=== PATIENT | female | born 1960 | race Caucasian/White ===

== ENCOUNTER 2023-01-22 05:16 | Observation (INO) ==
--- NOTE | 2022-10-26 15:53 | PAT Medication Instructions ---
Medication Instructions Date of Service October 26, 2022 Home Medications Medication Instructions Recorded amoxicillin 500 mg tablet 2,000 mg PO ONCE #4 tabs 09/09/22 levothyroxine 50 mcg tablet (Synthroid) 50 mcg PO QAM calcium carbonate,citrate-magnesium oxide 200 mg calcium-50 mg tablet 1 tab PO QAM echinacea 400 mg capsule 400 mg PO QAM estradiol 0.01% (0.1 mg/gram) vaginal cream 1 appful vaginal 2XWK omega 3-xcm-aqr-fish oil 1,200 mg (144 mg-216 mg) capsule (Fish Oil) 1 cap PO QAM turmeric 400 mg capsule 500 mg PO QAM zinc 50 mg tablet 50 mg PO 3XWK amoxicillin 500 mg tablet 2,000 mg PO ONCE Continue as directed amoxicillin 500 mg tablet 2,000 mg PO ONCE (if needed) ASK your prescriber and surgeon estradiol 0.01% (0.1 mg/gram) vaginal cream 1 appful vaginal 2XWK STOP taking 2 weeks before surgery echinacea 400 mg capsule 400 mg PO QAM omega 9-piq-dea-fish oil 1,200 mg (144 mg-216 mg) capsule (Fish Oil) 1 cap PO QAM turmeric 400 mg capsule 500 mg PO QAM DO NOT take the morning of surgery calcium carbonate,citrate-magnesium oxide 200 mg calcium-50 mg tablet 1 tab PO QAM zinc 50 mg tablet 50 mg PO 3XWK Take morning of surgery With a small sip of water, OTHERWISE NOTHING TO EAT OR DRINK AFTER MIDNIGHT: levothyroxine 50 mcg tablet (Synthroid) 50 mcg PO QAM Other Notes If you have any questions please call us at [phone] or [phone] or [phone] or [phone]
--- NOTE | 2022-10-27 13:12 | Anesthesiology Consultation ---
Date of Service October 27, 2022 Assessment & Plan (1) Encounter for pre-operative examination: - PAT testing to be faxed to PCP by patient request for continuity of care. - Outpatient joint pathway: Per surgeon and patient, plan for outpatient joint program. Upon review of chart- patient is an acceptable candidate for Same Day Joint Program from anesthesia perspective pending perioperative course. Pending patient is motivated, has good support and surgeon's office completes Same Day Joint Program preop requirements- patient may proceed with outpatient [facility]. Chart Review Chart Review: Acceptable Risk for Surgery and Patient NOT seen in Pre Admission Testing History Surgery Operation Date: 11/30/22 10:20 Proposed Procedures p Right Total Hip Arthroplasty Anterior - Poncho Ramos, Height/Weight Height: 5 ft 4 in Weight: 61 kg Allergies Allergy/AdvReac Type Severity Reaction Status Date / Time adhesive Allergy Mild CONTACT Verified 10/23/22 07:35 DERMATITIS WITH BANDAIDS latex Allergy Mild skin rash, Verified 10/27/22 13:08 blistering oxycodone AdvReac Intermediate severe Verified 10/23/22 07:35 nausea tramadol Allergy Unknown listed in Uncoded 10/28/22 15:10 S EMR Medications Home Medications Medication Instructions Recorded Confirmed Last Taken levothyroxine 50 mcg tablet 50 mcg PO QAM 05/01/20 10/23/22 08/08/21 04:30 (Synthroid) calcium 1 tab PO QAM 07/10/21 10/23/22 08/07/21 08:00 carbonate,citrate-magnesium oxide 200 mg calcium-50 mg tablet echinacea 400 mg capsule 400 mg PO QAM 07/10/21 10/23/22 07/25/21 08:00 estradiol 0.01% (0.1 mg/gram) 1 appful vaginal 2XWK 07/10/21 10/23/22 08/05/21 08:00 vaginal cream omega 0-qoj-hhq-fish oil 1,200 mg 1 cap PO QAM 07/10/21 10/23/22 07/25/21 08:00 (144 mg-216 mg) capsule (Fish Oil) turmeric 400 mg capsule 500 mg PO QAM 07/10/21 10/23/22 07/25/21 08:00 zinc 50 mg tablet 50 mg PO 3XWK 07/10/21 10/23/22 07/25/21 08:00 amoxicillin 500 mg tablet 2,000 mg PO ONCE #4 tabs 09/09/22 10/23/22 Unknown Past Medical History Medical History (Updated 10/27/22 @ 13:08 by Krystal Posadas PA-C) Chronic back pain History of COVID-2020>denies hospitalization>resolved Hypertension "Diet controlled" Hypothyroid Patient denies h/o stroke, seizures, heart attack, heart failure, DM, blood clots or blood transfusions. Exercise / Class Metabolic Activity II 4-5 Yardwork/Stairs/Walk up hill (denies chest discomfort or shortness of breath with 1 FOS) Past Family History Family History Father Diabetes Other Coronary heart disease No family history of adverse response to anesthesia Past Surgical History Surgical History (Updated 10/27/22 @ 13:09 by Krystal Posadas PA-C) H/O abdominal hysterectomy History of colonoscopy History of dilatation and curettage X 3 History of tooth extraction wisdom History of total hip arthroplasty left Past Anesthesia History No Hx of Anesthesia Complications and No Family Hx of Anesthesia Complications History of PONV No Hx of PONV and No Hx of Motion Sickness Social History Smoking Status: Never smoker Do You Dip or Chew Tobacco: No Hx Alcohol Use: Yes Alcohol type: hard liquor alcohol intake frequency: holidays/special occasions only substance use type: does not use Review of Systems Snoring, denies witnessed apneas. Patient denies chest pain, shortness of breath, dyspnea on exertion, reflux, fever, chills, cough, wheezing, or palpitations. Physical Exam Vital Signs Vitals BP 131/83 P 78 TEMP 97.8 SP02 100% on RA RESP 17 Physical Patient resting comfortably in chair in NAD, alert and oriented, responding appropriately throughout visit Full cervical extension range of motion without pain TMD 3.5 finger breadths Mallampati Score 2 Dentition: multiple caps and crowns; removable partial lower, denies chipped or loose teeth, implants Lungs: normal respiratory effort. Good air movement, clear throughout to auscultation, no adventitious breath sounds Cardiac: regular rate and rhythm, no murmurs noted Carotid arteries: negative bruit bilat Lab Results Anesthesia Preop Results Results Anesthesia Widget: WBC 7.50 K/ul (4.8-10.8) 10/27/22 Hgb 14.0 g/dl (12.0-16.0) 10/27/22 Hct 39.9 % (37.0-47.0) 10/27/22 Plt 318 K/uL (130-400) 10/27/22 Na 142 mmol/L (136-145) 10/27/22 K 3.5 mmol/L (3.5-5.1) 10/27/22 Cl 105 mmol/L (98-107) 10/27/22 CO2 31 mmol/L (21-32) 10/27/22 BUN 13 mg/dl (6-23) 10/27/22 Creat 0.91 mg/dl (0.6-1.2) 10/27/22 Glucose Level 82 mg/dl (70-99(Fasting)) 10/27/22 PT 11.0 Seconds (9.0-12.0) 10/27/22 PTT 26.4 Seconds (21.0-31.0) 10/27/22 INR 1.0 (0.9-1.1) 10/27/22 Blood Type O Positive 10/27/22 Antibody Screen NEGATIVE 10/27/22 Testing Electrocardiogram Date: 10/27/22 NSR, rate 65 bpm Chest X-Ray Date: 10/27/22 No acute process
--- NOTE | 2023-01-21 06:36 | History & Physical Report ---
Date of Service January 21, 2023 Assessment & Plan (1) Osteoarthritis of right hip: We will proceed with a right anterior total of arthroplasty. Postoperatively she will be in our outpatient joint protocol. She will be discharged home on aspirin for DVT prophylaxis and oral pain medications. She plans to use energy physical therapy upon discharge. History of Present Illness Chief Complaint: Osteoarthritis of the right hip. Primary Care Provider: Clayton Monroe DO Coello is a pleasant 62-year-old female who I did a left hip replacement on a year ago. She has done very well with that. Unfortunately, she is now dealing with right hip pain. X-rays and clinical examination have been diagnostic for advanced osteoarthritis of the right hip. After failing extensive conservative treatment, she would like to proceed with a right total hip arthroplasty. . Allergies Allergy/AdvReac Type Severity Reaction Status Date / Time adhesive Allergy Mild CONTACT Verified 01/19/23 13:49 DERMATITIS WITH BANDAIDS latex Allergy Mild skin rash, Verified 01/19/23 13:49 blistering oxycodone AdvReac Intermediate severe Verified 01/19/23 13:49 nausea tramadol Allergy Unknown listed in Uncoded 10/28/22 15:10 [facility] EMR Home Medications Medication Instructions Recorded Confirmed Type levothyroxine 50 mcg tablet 50 mcg PO QAM 05/01/20 01/19/23 History (Synthroid) calcium 1 tab PO QAM 07/10/21 01/19/23 History carbonate,citrate-magnesium oxide 200 mg calcium-50 mg tablet echinacea 400 mg capsule 400 mg PO QAM 07/10/21 01/19/23 History estradiol 0.01% (0.1 mg/gram) 1 appful vaginal 2XWK 07/10/21 01/19/23 History vaginal cream omega 6-ohi-fqe-fish oil 1,200 mg 1 cap PO QAM 07/10/21 01/19/23 History (144 mg-216 mg) capsule (Fish Oil) turmeric 400 mg capsule 500 mg PO QAM 07/10/21 01/19/23 History zinc 50 mg tablet 50 mg PO 3XWK PRN colds 07/10/21 01/19/23 History amoxicillin 500 mg tablet 2,000 mg (4 x 500 mg) PO ONCE #4 09/09/22 01/19/23 Rx tabs Past Med/Surg History Medical History History of COVID-19 2020>denies hospitalization>resolved Chronic back pain Hypertension "Diet controlled" Hypothyroid Surgical History History of tooth extraction wisdom History of total hip arthroplasty left History of dilatation and curettage X 3 History of colonoscopy H/O abdominal hysterectomy Family History Father Diabetes Other Coronary heart disease No family history of adverse response to anesthesia Social History Smoking Status: Never smoker Second Hand Exposure: No; Do You Dip or Chew Tobacco: No; Tobacco Cessation Education Requested by Patient: No Hx Alcohol Use: Yes Alcohol type: hard liquor Hx Substance Use: No Preferred Language: Thai Communication Ability: Effective 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 Physical Exam On physical examination of the right hip, she has decreased range of motion. She has pain with forced internal/external rotation. All of her pains in her groin.. Constitutional WD/WN, vitals as above Eyes PERRL, conjunctivae normal, anicteric sclerae ENMT external ear and nose normal, oropharynx normal Neck trachea midline, no thyromegaly Respiratory normal respiratory effort Cardiovascular RRR, no murmur, no edema Gastrointestinal (Abdomen) normal bowel sounds, soft, nontender, no hepatosplenomegaly Psychiatric A+Ox3, euthymic affect Results & Data Results & Data Laboratory Results . Diagnostic Findings X-rays of the right hip and pelvis show advanced osteoarthritis with joint space narrowing, osteophyte formation, and dgiy-go-sbbg articulation. PG Care Time/CCT Total # of Minutes Spent Total Time Spent with Patient: Total time spent is greater than 50% in coordination of care (as documented) at patient's floor/unit and/or counseling patient: Coding Level of Care Code None Diagnoses Osteoarthritis of right hip M16.11
[2023-01-22] MEDS ORDERED: FAMOTIDINE 20 MG TAB PO SCH (06:00)
[2023-01-22] MEDS ORDERED: dexAMETHasone 4 MG TAB PO SCH (06:00)
[2023-01-22] MEDS ORDERED: ACETAMINOPHEN 500 MG TAB PO SCH (06:00)
[2023-01-22] MEDS ORDERED: LR 500ML BOLUS, THEN 15ML/HR IV SCH (06:00)
[2023-01-22] MEDS ORDERED: TRANEXAMIC ACID 1,000 MG **IV Pre-op IV SCH (06:00)
[2023-01-22] MEDS ORDERED: GABAPENTIN 600 MG DOSE PO SCH (06:00)
[2023-01-22] MEDS ORDERED: LR 60ML/HR IV SCH (06:00)
[2023-01-22] MEDS ORDERED: TRANEXAMIC ACID 1,000 MG **IV Intra-op IV SCH (06:00)
[2023-01-22] MEDS ORDERED: ceFAZolin 2000MG 2,000 MG/15 ML SYR IV SCH (06:00)
[2023-01-22] MEDS ORDERED: ORTHO JOINT MIX INFIL SCH (06:00)
[2023-01-22] MEDS ORDERED: MEPIVACAINE HCL 1.5% 30 ML VIAL ONE (06:24)
[2023-01-22] MEDS ORDERED: ePHEDrine sulfate 50 MG/ML AMP IV PRN (06:32)
[2023-01-22] MEDS ORDERED: ATROPINE SULFATE 0.1 MG/ML 10ML SYR IV PRN (06:32)
[2023-01-22] MEDS ORDERED: ONDANSETRON INJ 2 MG/ML 2 ML VIAL IV PRN ×2 (06:32→15:44)
[2023-01-22] MEDS ORDERED: fentaNYL citrate PF 100 MCG/2 ML VIAL IV PRN (06:32)
--- NOTE | 2023-01-22 06:35 | History & Physical Bridge Note ---
Date of Service January 22, 2023 History & Physical Bridge Note I have examined the patient, reviewed the History & Physical and in the interval since the performance of the History & Physical I have noted the following changes of clinical significance: no changes noted
[2023-01-22] MEDS ORDERED: fentaNYL citrate PF 100 MCG/2 ML VIAL ONE (06:45)
[2023-01-22] MEDS ORDERED: ORTHO JOINT ANESTHETIC ONE (06:45)
[2023-01-22] MEDS ORDERED: MIDAZOLAM HCL 1 MG/ML 2ML VIAL ONE (06:45)
[2023-01-22] MEDS ORDERED: PROPOFOL IV EMULSION 10 MG/ML 20 ML VIAL IV ONE (06:57)
[2023-01-22] MEDS ORDERED: ONDANSETRON INJ 2 MG/ML 2 ML VIAL ONE (07:25)
[2023-01-22] MEDS ORDERED: PHENYLEPHRINE 100MCG/ML 10ML SYR IV ONE (08:03)
--- NOTE | 2023-01-22 08:05 | Operative Report ---
PG Post Operative Report Pre & Post Diagnosis Operation Date: 01/22/23 07:00 Pre-Op Diagnosis: DJD Hip Right Post-Op Diagnosis: DJD Hip Right I identified the patient and participated in the time-out.: Yes Procedure Operation Date: 01/22/23 07:00 Actual Procedures p Right Anterior Total Hip Arthroplasty(Right) - Poncho Ramos DO Surgeon Poncho Ramos DO [employer] Supervisor Poncho Ruvalcaba PA-C Estimated Blood Loss 150 Findings Consistent with Post-Op Diagnosis Specimens Right femoral head Description of Procedure Implants used I used a ZimmerBiomet total hip arthroplasty system with a size 6 standard offset Avenir Complete stem, a 54 mm G7 cup with a 25mm screw, an E1 polyethylene liner, a 40 mm ceramic head with a -3.5 neck. Oumou arrived at the hospital for the above procedure. She was seen in the preoperative holding area and the operative extremity was identified and signed. She was given a spinal anesthetic, a preoperative antibiotic, and TXA. She was then taken back to the operating room and laid on the table in the supine position. She was given basic sedation. The operative leg was secured to a Puristst leg positioner. The hip was then prepped and draped in sterile fashion. A timeout was done and the patient and the operative extremity was properly identified. An anterior approach was used. Dissection was taken down through the fascia and the tensor muscle belly was retracted laterally and the rectus was retracted medially. The circumflex vessels were identified and ligated. The capsule was then incised and tagged for later repair. The femoral neck was then cut and the femoral head was removed. The acetabulum was exposed. Time was spent doing a complete circumferential labral release. Sequential reaming of the acetabulum up to a size 53 reamer was done. Final reamings were done under fluoroscopy to ensure appropriate version. A Biomet 54 mm G7 cup was then impacted into place. A single 25 mm screw was placed. The E1 polyethylene liner was then snapped into place. Surrounding soft tissues were then injected with 100 cc of an orthopedic pain control cocktail. The proximal femur was then exposed. Sequential broaching up to a size 6 broach was done. Off that broach a size 40 head with a -3.5 neck was trialed. The hip was reduced and fluoroscopic images showed anatomic alignment of the implants in acceptable length. The broach was removed. The final size 6 Avenir Complete stem was then impacted into place. A ceramic 40 mm head with a -3.5 neck was then impacted onto the stem and the hip was reduced. Final fluoroscopic images showed anatomic alignment of the hip. The capsule was then closed with #1 Vicryl suture. A dilute betadyne lavage was then done for 3 minutes. The joint was then irrigated with normal saline solution. The fascia was closed with #1 PDS suture. Skin was closed with 2-0 Vicryl, dorothy, and a Silverlon dressing. She was then transferred to a hospital bed and taken to the post anesthesia care unit in stable condition. She tolerated the procedure well. Poncho Stinson PA-C, was present for the entire procedure. He was critical for patient positioning, prepping, draping, retraction exposure, wound closure and application of sterile dressing. I attest to the content of the Intraoperative Record and any orders documented therein. Any exceptions are noted below.
[2023-01-22] MEDS ORDERED: HYDROCODONE/ACETAMOPHEN 5/325MG TAB PO PRN ×2 (08:23→15:44)
--- NOTE | 2023-01-22 08:36 | Fluoroscopy Report ---
FL hip RT 1V CLINICAL HISTORY: RIGHT ANTERIOR HIPright hip arthroplasty COMPARISON STUDY: 06/24/2022 FLUOROSCOPY TIME: 18.2 seconds FLUOROSCOPY IMAGES: 1 EXPOSURE DOSE: 1.03 mGy FINDINGS: Right arthroplasty demonstrates satisfactory alignment. No acute fracture or unexpected opa que foreign body. Expected postoperative soft tissue swelling with deep tissue air. IMPRESSION: Right hip arthroplasty with expected postoperative changes. ACT 112: Negative or not required by law. Electronically signed by: Delano Hernandez M.D. 01/22/2023 8:34 AM
--- NOTE | 2023-01-22 11:04 | XRay Report ---
XR hip 1V RT w pelvis HISTORY: 62 years-old Female IN PACU - A/P PELVIS and LATERAL HIP right hip arthroplasty COMPARISON: 09/24/2021 TECHNIQUE: AP view of the pelvis with crosstable lateral view of the right hip FINDINGS: Unremarkable appearance of the bilateral hip arthroplasties. Expected postoperative soft tissue swell ing and deep tissue air surrounding the right hip with lateral skin dorothy. IMPRESSION: Right hip arthroplasty with expected postoperative changes. ACT 112: Negative or not required by law. The above report was generated using voice recognition software. It may contain grammatical, syntax o r spelling errors. Electronically signed by: Delano Hernandez M.D. 01/22/2023 11:02 AM
--- NOTE | 2023-01-22 12:29 | Anesthesiology Progress Note ---
Date of Service January 22, 2023 Anesthesia Post Procedure Vital Signs Vital Signs: Temp Pulse Pulse Resp BP Pulse Ox O2 Del Method 01/22/23 12:05 97.7 F 80 18 107/63 97 Room Air 01/22/23 11:05 97.5 F L 60 18 110/69 93 Room Air 01/22/23 10:35 97.9 F 60 18 129/71 93 Room Air 01/22/23 10:05 97.9 F 60 18 110/69 93 Room Air 01/22/23 09:55 97.3 F L 58 L 12 105/68 98 Room Air 01/22/23 09:45 60 12 98/62 L 99 Room Air 01/22/23 09:35 63 16 100/67 96 Room Air 01/22/23 09:25 58 L 11 L 105/69 98 Room Air 01/22/23 09:15 57 L 12 102/65 92 Room Air 01/22/23 09:05 62 12 105/69 92 Room Air 01/22/23 08:55 62 12 104/65 93 Room Air 01/22/23 08:45 62 13 101/61 97 Room Air 01/22/23 08:35 64 12 100/62 95 Room Air 01/22/23 08:26 96.8 F L 72 15 102/63 99 Oxymask 01/22/23 05:50 97.5 F L 84 18 153/85 H 99 Room Air O2 Flow Rate 01/22/23 12:05 01/22/23 11:05 01/22/23 10:35 01/22/23 10:05 01/22/23 09:55 01/22/23 09:45 01/22/23 09:35 01/22/23 09:25 01/22/23 09:15 01/22/23 09:05 01/22/23 08:55 01/22/23 08:45 01/22/23 08:35 01/22/23 08:26 5 01/22/23 05:50 Pain Intensity Right Hip: Pain Intensity: 2 Transfer of Care Handoff Completed per policy Notes Mental Status: alert / awake / arousable and participated in evaluation Patient Amnestic to Procedure: Yes Nausea / Vomiting: adequately controlled Pain: adequately controlled Airway Patency, RR, SpO2: stable & adequate BP & HR: stable & adequate Hydration State: stable & adequate Neuraxial Anesthesia: was administered and sensory block is resolving Anesthetic Complications: no major complications apparent and Pt Satisfied with anesthetic care
[2023-01-22] MEDS ORDERED: SODIUM CHLORIDE 0.9% 500 ML IV ONE ×2 (13:37→14:00)
[2023-01-22] MEDS ORDERED: MAGNESIUM HYDROXIDE SUSP 30 ML UDC PO PRN (15:44)
[2023-01-22] MEDS ORDERED: METOCLOPRAMIDE HCL INJ 5 MG/ML 2 ML VIAL IV PRN (15:44)
[2023-01-22] MEDS ORDERED: NALOXONE HCL 0.4 MG/1 ML VIAL/CARP IV PRN (15:44)
[2023-01-22] MEDS ORDERED: SODIUM CHLORIDE 0.9% 1,000 ML IV SCH (15:44)
[2023-01-22] MEDS ORDERED: bisacodyL 10 MG SUPP PR PRN (15:44)
[2023-01-22] MEDS: KETOROLAC 30 MG/ML VIAL IV SCH ×2 (17:52→22:13)
[2023-01-22] MEDS: DOCUSATE SODIUM 100 MG CAP PO SCH (20:47)
[2023-01-22] MEDS: ceFAZolin 1000MG 1,000 MG/7.5 ML SYR IV SCH (20:47)
[2023-01-22] MEDS: ASPIRIN 81 MG ECTAB PO SCH (20:48)
[2023-01-22] MEDS ORDERED: SENNA 8.6 MG TAB PO SCH (21:00)
[2023-01-23] MEDS: KETOROLAC 30 MG/ML VIAL IV SCH (05:21)
[2023-01-23] MEDS: ceFAZolin 1000MG 1,000 MG/7.5 ML SYR IV SCH (05:21)
[2023-01-23] MEDS ORDERED: LEVOTHYROXINE SODIUM 50 MCG TABLET PO SCH (06:30)
[2023-01-23] MEDS ORDERED: dexAMETHasone 4 MG TAB PO SCH (08:00)
[2023-01-23] MEDS ORDERED: MULTIVITAMIN TAB PO SCH (09:00)
[2023-01-23] MEDS: DOCUSATE SODIUM 100 MG CAP PO SCH (09:11)
[2023-01-23] MEDS: ASPIRIN 81 MG ECTAB PO SCH (09:11)
--- NOTE | 2023-01-23 09:44 | Orthopedic Progress Note ---
Date of Service January 23, 2023 Assessment & Plan (1) Status post right hip replacement: Overall she is doing fairly well. She is not having much pain in the right hip. She will be seen by physical therapy today for ambulation and range of motion exercises. She is on aspirin for DVT prophylaxis. She can be discharged home later today. She will follow-up orthopedics in 2 weeks. Logan Coello was seen and examined at bedside this morning. Overall she is feeling much better. She is happy she stayed the night. She has been up and ambulating to the bathroom. She is no complaints.. Review of Systems All systems reviewed & are unremarkable except as noted in HPI & below. Physical Exam On physical examination of the right hip, the dressing is clean and dry. Her leg is out full extension. She is active dorsiflexion plantarflexion of the right ankle.. Results & Data Results & Data Laboratory Results . Diagnostic Findings Postoperative x-rays of the right hip show the prosthesis to be in anatomic alignment without any evidence of fracture complication, or loosening.. PG Care Time/CCT Total # of Minutes Spent Total Time Spent with Patient: Total time spent is greater than 50% in coordination of care (as documented) at patient's floor/unit and/or counseling patient: Coding Level of Care Code 04030 Post Operative Follow-Up Diagnoses Status post right hip replacement Z96.641
--- NOTE | 2023-01-23 09:46 | Discharge Summary ---
Date of Service January 23, 2023 Admission HPI (Per Admitting) Oumou is a pleasant 62-year-old female who I did a left hip replacement on a year ago. She has done very well with that. Unfortunately, she is now dealing with right hip pain. X-rays and clinical examination have been diagnostic for advanced osteoarthritis of the right hip. After failing extensive conservative treatment, she would like to proceed with a right total hip arthroplasty. . Admission Exam (Per Admitting) On physical examination of the right hip, she has decreased range of motion. She has pain with forced internal/external rotation. All of her pains in her groin.. Principal Diagnosis Same as "Discharge Diagnosis" noted below under Discharge Instructions. Discharge Exam On physical examination of the right hip, the dressing is clean and dry. Her leg is out full extension. She is active dorsiflexion plantarflexion of the right ankle.. Discharge Data Procedures Performed Operation Date: 01/22/23 07:00 Actual Procedures p Right Anterior Total Hip Arthroplasty(Right) - Poncho Ramos DO Ordered Studies 01/22/23 07:00 FL hip RT 1V Routine Hospital Course (1) Status post right hip replacement: On January 22, 2023 Oumou arrived at [facility] and underwent a right anterior hip replacement without complication. She had a spinal anesthetic. She was initially part of her outpatient joint protocol. Postoperatively she was a little hypotensive initially with physical therapy. Later in the day she was feeling better. After discussions, she felt it was better just to stay the night. We decided to admit her and transferred to the general orthopedic floors. Her hospital course was uneventful. On postop day 1, her vital signs were stable and her pain was well controlled. She was able to participate well with physical therapy doing ambulation and range of motion exercises. She was then discharged home. She will follow-up orthopedics in 2 weeks. PG Care Time/CCT Total # of Minutes Spent Total Time Spent with Patient: Total time spent is greater than 50% in coordination of care (as documented) at patient's floor/unit and/or counseling patient: Discharge Plan Discharge Items Patient Disposition: Home - Home Health Services Reason For Visit: POST SURGICAL CARE Discharge Diagnosis: same as above Activity: Per Instructions section Non-emergency contact: Surgeon Call non-emergency contact if: your temperature is above 101.5, your wound has increased redness and your wound has increased drainage Follow-up/Referrals: [facility] [Outside] (as per surgeon's office ) Clayton Monroe, [Primary Care Provider] - Diet: Regular Addtl Attending Provider Instructions: Activity and Therapy Recommendations: * If you are using [facility] then therapy will be provided at your home until they feel you have accomplished all of your goals. * If you are using [facility] then Physical Therapy will be provided until they feel you are ready to start Outpatient Physical Therapy. * If you are not using home therapy then Outpatient Physical Therapy should start about 3-5 days from your day of surgery. Therapy will last about 6-10 weeks * You were shown a series of exercises in the hospital. Do these exercises three times each day including the exercises you were shown in physical therapy. * Get up and walk several times each day.~ For the first four weeks, try not to stand or walk for more than one hour at a time. If you do stand or walk for more than one hour, you will not hurt anything, but your leg will likely swell.~~ * As you feel comfortable, you may change from the walker or crutches to a cane and~then to independent walking. Medications: * Narcotic You will likely be sent home from the hospital with a prescription for the narcotic pain medication that worked best throughout your stay. * Aspirin Most patients will be required to take Aspirin 81mg twice a day for 6 weeks after surgery. This is obtained [id number] and a prescription is not necessary. * Cefadroxil -take the antibiotic twice a day for 10 days to help with infections. * Other medications may be prescribed for specific circumstances. If you have any questions, please call the office at . * Resume previous home medications unless otherwise instructed TEDs/Elastic Stockings: The white elastic stockings help limit swelling and prevent blood clots from forming in your legs. The more you wear them, the more they work. Wear them for six weeks. Dressing Care: Leave the Silverlon dressing in place for 7 days. After 7 days you may remove the dressing. If the incision is not draining then you may leave the dorothy open to air. If there is a little bit of drainage or if the dorothy are getting stuck on your clothing then cover the incision with a dry dressing. The dorothy will be removed at your 2 week follow-up appointment. Showering: You may shower with the Silverlon dressing in place. Do not let the shower spray hit the dressing directly. Pat the Silverlon dressing dry. If the dressing becomes wet underneath, then simply remove the dressing. Keep the incision dry until you are 7 days out from the day of surgery. After 7 days you may remove the Silverlon dressing and shower with the dorothy exposed. Let soapy water run over the dorothy and pat them dry. Do not scrub or soak the incision. Things To Watch For: * Drainage from the incision site that occurs more than one week after your surgery. * Increased redness at the incision site. * Fever above 102 degrees Fahrenheit. * Unusual chest pain or shortness of breath. * Call [facility] at with any of the above problems Follow-Up Visit: Follow-up with Dr. Ramos's PA (Poncho Stinson) 2-3 weeks after your day of surgery. He will remove your dorothy and answer any questions. If you have any additional questions or concerns, Dr Ramos is usually in the office at the same time and will be available An appointment was probably scheduled when you signed-up for surgery in the office. If you have any questions call Office Instructions: More detailed instructions as well as Frequently Asked Questions were provided in a folder by our office when you signed-up for surgery. Please review these instructions when you get home. If you have any further questions or concerns, please feel free to call the office at [phone] Pending Studies at Discharge: No Stand-Alone Forms: Anesthesia/Sedation, Adult, My [facility], Smoking Cessation Medications and DC Order Prescriptions: New celecoxib [Celebrex] 200 mg capsule 200 mg PO Q12H PRN (Reason: pain) Qty: 60 0RF cefadroxil 500 mg capsule 500 mg PO BID 10 Days Qty: 20 0RF hydrocodone-acetaminophen 5-325 mg tablet 1 tab PO Q6H PRN (Reason: pain) Qty: 20 0RF ondansetron HCl 4 mg tablet 4 mg PO TID PRN (Reason: nausea and vomiting) Qty: 20 0RF aspirin 81 mg Tablet,Delayed Release (Dr/Ec) 81 mg PO BID 42 Days Qty: 0 0RF Continued amoxicillin 500 mg tablet 2,000 mg PO ONCE Qty: 4 3RF Rx Instructions: 4 tabs 1 hour prior to procedure levothyroxine [Synthroid] 50 mcg tablet 50 mcg PO QAM estradiol 0.01 % (0.1 mg/gram) Cream 1 appful VAGINAL 2XWK omega 1-cym-hqv-fish oil [Fish Oil] 1,200 (144-216) mg Capsule 1 cap PO QAM echinacea 400 mg Capsule 400 mg PO QAM calcium carb and citrat-mag ox 200 mg calcium- 50 mg Tablet 1 tab PO QAM turmeric 400 mg Capsule 500 mg PO QAM zinc 50 mg Tablet 50 mg PO 3XWK PRN (Reason: colds) Krames/Other Patient Handouts: DVT Post Op Prevention Admission Data Admit Date/Time: 01/22/23 14:39 Attending Provider: Poncho Ramos Admit Provider: Poncho Ramos Primary Care Provider: Clayton Monroe
--- OUTSIDE RECORDS SUMMARY | 2023-01-25 22:51 | External Medical Summary | Summary of Care ---
Author Name Unknown Organization [facility] Address [address] [place] [address] Phone [phone] Care Team Providers Care Rn Clinical Resource Name Role Phone Clayton Monroe DO Primary Care Provider Encounter Details Date Type Department Care Team (Late st Contact Info) Description 01/04/[address] [facility] ([place], [place]) [address] [place] [id number] Clayton Monroe DO [address] [place] [address] Allergies Active Allergy Reactions Criticality Noted Date Comments Alcohol Rash 04/10/2019 Latex 02/13/2020 Tramadol 02/13/2020 documented as of this encounter (statuses as of 01/04/2023) Medications Medication Sig Dispensed Refills Start Date End Date Status Calcium 500-125 MG-UNIT Tablet Take 1 Tab by mouth three times a day with meals. 0 Active Turmeric 500 MG Capsule Take 500 mg by mouth daily. 0 Active Echinacea 125 MG Oral Capsule Take by mouth. 0 Active Fish Oil 1000 MG Oral Capsule Take 1,000 mg by mouth daily. 0 Active Fluticasone Propionate 50 MCG/ACT Nasal Suspension (Flonase)Indications: Dysfunction of left eustachian tube Administer 2 Sprays into each nostril daily. 16 g 2 11/14/2020 Active Additional Information Patient not taking.Reported on 02/16/2022 Levothyroxine Sodium 50 MCG Oral Tablet (Synthroid)Indication s:Acquired hypothyroidism TAKE 1 TABLET DAILY FIRST THING IN THE MORNING AT LEAST 30 MINUTES PRIOR TO BREAKFAST OR OTHER MEDS Strength: 50 mcg 90 Tablet 3 04/07/2022 Active documented as of this encounter (statuses as of 01/04/2023) Active Problems Problem Noted Date Diagnosed Date HTN, goal below 130/80 02/13/2020 Acquired hypothyroidism 02/13/2020 Encounter for long-term (current) use of medicat ions 02/13/2020 Neoplasm of uncertain behavior of skin 0 documented as of this encounter (statuses as of 01/04/2023) Immunizations Name Administration Dates Next Due Covid-19 Ad26, Single Dose (Mague/J&J) 021 Measles & Rubella Vaccine 05/22/2019 SEASONAL INFLUENZA, PF, 6 M & Above, IM , (FLULAVAL or FLUZONE) 01/02/2023,12/18/2021,12/28/2020 TDAP (age 10 and older)(Boostrix) 11/23/2018 Zoster Vaccine Recombinant (Shingrix) 11/30/2019 ,09/25/2019 documented as of this encounter Social History Tobacco Use Types Packs/Day Years Used Date Smoking Tobacco: Never Smokeless Tobacco: Never Alcohol Use Standard Drinks/Week Comments Never 0 (1 standard drink = 0.6 oz pur e alcohol) Hunger Vital Sign Answer Date Recorded Within the past 12 months, y ou worried that your food would run out before you got the money to buy more. Never true 02/16/20 22 Within the past 12 months, t he food you bought just didn't last and you didn't have money to get more. Never true 02/15/2022 Sex and Gender Information Value Date Recorded Sex Assigned at Female 02/15/2022 9:38 PM EST Gender Identity Female 02/15/2022 9:38 PM EST Sexual Orientation Not on file Job Start Date Occupation Industry Not on file Not on file Not on file documented as of this encounter Plan of Treatment Upcoming Encounters Date Type Department Care Team (Late st Contact Info) Description 01/14/2023 8:20 AM EDT Office Visit Family [facility] [address] [id number] Clayton Monroe, [address] [place] [phone] Scheduled Procedures Name Priority Associated Diagnoses Date/Ti me COLONOSCOPY FLEXIBLE PROXIMAL DIAGNOSTIC Recall Screen for colon cancer Health Maintenance Due Date Last Done Comments Pap Smear 1980 Cervical Cancer Screening 1989 HPV/Co-Test 1989 Cologuard 2004 Fecal Occult Blood Test 2004 Sigmoidoscopy 2004 Depression Screening 02/13/2022 02/13/2021 COVID-19 Vaccine ( season) 2022 08/29/2020 GFR 08/14/2023 01/01/2023, 03/2022, 01/20/2022, Additional history exists TSH 08/14/2023 08/13/2022, 10/2021, 06/11/2021, Additional history exists Mammogram 10/03/2023 10/02/2022, 09/13, 08/06/2021 (Done elsewhere), Additional history exists Albumin/Creatinine Ratio 01/20/2025 022, 10/24/2020, 02/13/2020 Lipid Panel 01/20/2027 01/20/2022, 05/15, 10/24/2020, Additional history exists DTaP,Tdap,and Td Vaccines (2 - Td or Tdap) 11/23/2028 11/23/2018 Colonoscopy 04/17/2029 04/17/2019, 04/17/2019 Colorectal Cancer Screening 04/17/2029 Zoster Vaccines Completed 11/30/2019, 09/25/2019 Influenza Vaccine (FLU shot) Completed , 12/18/2021, 12/28/2020, Additional history exists GARDASIL-HPV IMMUNIZATION SERIES Aged Out No longer eligible based on patient's age to complete this topic Hepatitis B Aged Out No longer eligi ble based on patient's age to complete this topic MENINGOCOCCAL (MENACTRA/MENVEO) Aged Out No longer eligible based on patient's age to complete this topic Pneumococcal Vaccine: Pediatrics (0 to 5 Years) and At-Risk Patients (6 to 64 Years) Aged Out No longer eligible based on patient's age to complete this topic documented as of this encounter Medical Devices Not on filedocumented as of this encounter Procedures Procedure Name Priority Date/Time Associated Diagnosis Comments CHEMISTRY-OUTSIDE Routine 01/01/2023 documented in this encounter Results * CHEMISTRY-OUTSIDE (01/01/2023) Not all results display below - see scan for full detail OUTSIDE LAB (SEE SCANNED REPORT) Comment:SCAN INCL:PRE OP LAB S: BMP, CBCD,PT, INR, PTT, TYPE/SCR CREATININE-OUTSID E LAB 0.93 0.6 - 1.2 MG/DL OUTSIDE LAB (SEE SCANNED REPORT) EGFR-OUTSIDE LAB 65.4 OUT SIDE LAB (SEE SCANNED REPORT) POTASSIUM-OUTSIDE LAB 3.8 3.5 - 5.1 MMOL/L OUTSIDE LAB (SEE SCANNED REPORT) GLUCOSE-OUTSIDE LAB 72 70 - 99 MG/DL OUTSIDE LAB (SEE SCANNED REPORT) HOURS FASTING OUTSID E LAB (SEE SCANNED REPORT) TRIGLYCERIDES-OUT SIDE LAB OUTSIDE LAB (SEE SCANNED REPORT) CHOLESTEROL-OUTSI DE LAB OUTSIDE LAB (SEE SCANNED REPORT) HDL-OUTSIDE LAB OUTS [facility] (SEE SCANNED REPORT) CHOL/HDL RATIO-OUTSIDE LAB OUTSIDE LA B (SEE SCANNED REPORT) LDL (CALCULATED)-OUTS [facility] OUTSIDE LAB (SEE SCANNED REPORT) LDL (DIRECT MEASURE)-OUTSIDE LAB OUTSIDE LAB (SEE SCANNED REPORT) HEMOGLOBIN, [id number] LAB OUTSIDE LAB (SEE SCANNED REPORT) PHOSPHORUS-OUTSID E LAB OUTSIDE LAB (SEE SCANNED REPORT) PTH-OUTSIDE LAB OUTS [facility] (SEE SCANNED REPORT) MICROALBUMIN RATIO-OUTSIDE LAB OUTSIDE LA B (SEE SCANNED REPORT) PROTEIN, UA-OUTSIDE LAB OUTSIDE LAB (SEE SCANNED REPORT) HEMOGLOBIN-OUTSID E LAB 12.9 12.0 - 16.0 G/DL OUTSIDE LAB (SEE SCANNED REPORT) 01/01/2023 Poncho Ramos DO LABORATORY OUTSIDE LAB (SEE SCANNED REPORT) documented in this encounter Care Teams Rn Clinical Resource Relationship Specialty Start Date End Date Clayton Monroe DO [address] [address] PCP - General Family Medicine 02/13/20 documented as of this encounter
--- OUTSIDE RECORDS SUMMARY | 2023-01-25 22:51 | External Medical Summary | Summary of Care ---
Author Name Unknown Organization [facility] Address [address] [place] [address] Phone [phone] Care Team Providers Care Account [employer] Name Role Phone Clayton Monroe DO Primary Care Provider Reason for Visit * Reason Comments Physical-Exam Pt here for annual e xam and discuss recent labs. Encounter Details Date Type Department Care Team (Late st Contact Info) Description 01/14/2023 8:20 AM EDT Office Visit Family Practice [facility] [address] [place] [address] Clayton Monroe DO [address] [place] [address] HTN, goal below 130/80*; Acquired hypothyroidism; Encounter for long-term (current) use of medications; Vaginal atrophy; Onychomycosis Allergies Active Allergy Reactions Criticality Noted Date Comments Alcohol Rash 04/10/2019 Latex 02/13/2020 Oxycodone Nausea/vomiting 11/04/2021 Constipation Tramadol 02/13/2020 documented as of this encounter (statuses as of 01/14/2023) Medications Medication Sig Dispensed Refills Start Date End Date Status Calcium 500-125 MG-UNIT Tablet Take 1 Tab by mouth three times a day with meals. 0 Active Turmeric 500 MG Capsule Take 1 Capsule by mouth in the morning. 0 Active Echinacea 125 MG Oral Capsule Take by mouth. 0 Active Fish Oil 1000 MG Oral Capsule Take 1 Capsule by mouth in the morning. 0 Active Fluticasone Propionate 50 MCG/ACT Nasal Suspension (Flonase)Indication s:Dysfunction of left eustachian tube Administer 2 Sprays into each nostril daily. 16 g 2 11/14/2020 Active Additional Information Patient not taking.Reported on 02/16/2022 Estradiol 0.1 MG/GM Vaginal Cream (Estrace)Indication s:Vaginal atrophy Administer 1 g into the vagina every other day. 42.5 g 12 01/14/2023 Active Levothyroxine Sodium 50 MCG Oral Tablet (Synthroid)Indicati ons:Acquired hypothyroidism TAKE 1 TABLET DAILY FIRST THING IN THE MORNING AT LEAST 30 MINUTES PRIOR TO BREAKFAST OR OTHER MEDS Strength: 50 mcg 90 Tablet 3 01/14/2023 Active Ciclopirox 8 % External SolutionIndications :Onychomycosis Apply over nail and surrounding skin. Apply daily over previous coat. After seven (7) days, may remove with alcohol and continue cycle. 6.6 mL 0 01/14/2023 Active Levothyroxine Sodium 50 MCG Oral Tablet (Synthroid)Indicati ons:Acquired hypothyroidism TAKE 1 TABLET DAILY FIRST THING IN THE MORNING AT LEAST 30 MINUTES PRIOR TO BREAKFAST OR OTHER MEDS Strength: 50 mcg 90 Tablet 3 04/07/2022 3 Discontinue d(Refill) documented as of this encounter (statuses as of 01/14/2023) Active Problems Problem Noted Date Diagnosed Date HTN, goal below 130/80 02/13/2020 Acquired hypothyroidism 02/13/2020 Encounter for long-term (current) use of medicat ions 02/13/2020 Neoplasm of uncertain behavior of skin 0 documented as of this encounter (statuses as of 01/14/2023) Immunizations Name Administration Dates Next Due Covid-19 Ad26, Single Dose (Mague/J&J) 021 Measles & Rubella Vaccine 05/22/2019 SEASONAL INFLUENZA, PF, 6 M & Above, IM , (FLULAVAL or FLUZONE) 01/02/2023,12/18/2021,12/28/2020 TDAP (age 10 and older)(Boostrix) 11/23/2018 Zoster Vaccine Recombinant (Shingrix) 11/30/2019 ,09/25/2019 documented as of this encounter Social History Tobacco Use Types Packs/Day Years Used Date Smoking Tobacco: Never Smokeless Tobacco: Never Tobacco Cessation:Counseling Given: Not Answered Alcohol Use Standard Drinks/Week Comments Never 0 (1 standard drink = 0.6 oz pur e alcohol) AUDIT-C Answer Date Recorded Q1: How often do you have a drink containing alc ohol? Never 02/13/2020 Average Number of Drinks Not on file 020 Frequency of Binge Drinking Not on file 03/2019 PHQ-2 Answer Date Recorded PHQ Adult Total Score 0 02/13/2021 Hunger Vital Sign Answer Date Recorded Within [...] on file documented as of this encounter Last Filed Vital Signs Vital Sign Reading Time Taken Comments Blood Pressure 132/88 01/14/2023 8:14 AM EDT Pulse 74 01/14/2023 8:14 AM EDT Temperature 36.2 C (97.2 F) 01/14/2023 8:14 AM ED T Respiratory Rate 16 01/14/2023 8:14 AM EDT Oxygen Saturation 99% 01/14/2023 8:14 AM EDT Inhaled Oxygen Concentration - - Weight 61.5 kg (135 lb 8 oz) 01/14/2023 8:14 AM EDT Height - - Body Mass Index 23.26 02/16/2022 12:14 PM EST documented in this encounter Progress Notes * Clayton Monroe DO - 01/14/2023 8:18 AM EDT Images from the original note were not included. Assessment and Plan HTN, goal below 130/80 - BASIC METABOLIC PANEL - CBC WITH WBC DIFFERENTIAL Acquired hypothyroidism - TSH WITH FREE T4 IF INDICATED - Levothyroxine Sodium 50 MCG Oral Tablet (Synthroid); TAKE 1 TABLET DAILY FIRST THING IN THE MORNING AT LEAST 30 MINUTES PRIOR TO BREAKFAST OR OTHER MEDS Strength: 50 mcg Encounter for long-term (current) use of medications - LIPID PANEL WITH DIRECT LDL IF TG IS HIGH Vaginal atrophy - Estradiol 0.1 MG/GM Vaginal Cream (Estrace); Administer 1 g into the vagina every other day. Onychomycosis - Ciclopirox 8 % External Solution; Apply over nail and surrounding skin. Apply daily over previouscoat. After seven (7) days, may remove with alcohol and continue cycle. History of Present Illness Oumou Iraheta is a 62 year old female that presents for Physical-Exam (Pt here for annual exam and discuss recent labs.) Doing very well overall And compliant with medication And labs Physical Exam Vitals: 01/14/23 0814 Temp: 36.2 C (97.2 F) Pulse: 74 Resp: 16 SpO2: 99% BP: 132/88 Physical Exam Vitals and nursing note reviewed. Constitutional: Appearance: Normal appearance. HENT: Head: Normocephalic and atraumatic. Right Ear: Tympanic membrane, ear canal and external ear normal. There is no impacted cerumen. Left Ear: Tympanic membrane, ear canal and external ear normal. There is no impacted cerumen. Nose: Nose normal. Mouth/Throat: Mouth: Mucous membranes are moist. Pharynx: Oropharynx is clear. Eyes: Extraocular Movements: Extraocular movements intact. Conjunctiva/sclera: Conjunctivae normal. Pupils: Pupils are equal, round, and reactive to light. Cardiovascular: Rate and Rhythm: Normal rate and regular rhythm. Heart sounds: Normal heart sounds. Pulmonary: Effort: Pulmonary effort is normal. Breath sounds: Normal breath sounds. Abdominal: General: Abdomen is flat. Palpations: Abdomen is soft. Musculoskeletal: General: Normal range of motion. Cervical back: Normal range of motion and neck supple. Lymphadenopathy: Cervical: No cervical adenopathy. Skin: General: Skin is warm and dry. Neurological: General: No focal deficit present. Mental Status: She is alert and oriented to person, place, and time. Wrap-Up Follow Up: Return in about 6 months (around 07/15/2023). Time: Total time today was 25 minutes excluding any time spent in the performance of separately billed services. documented in this encounter Plan of Treatment Upcoming Encounters Date Type Department Care Team (Late st Contact Info) Description 07/21/2023 12:20 PM EDT Office Visit Family [facility] [address] [place] [address] Clayton Monroe DO [address] [place] [address] Scheduled Orders Name Type Priority Associated Diagnoses Orde r Schedule TSH WITH FREE T4 IF INDICATED Lab Routine Acquired hypothyroidism Ordered: 01/14/2023 BASIC METABOLIC PANEL Lab Routine HTN, goal below 130/80 Ordered: 01/14/2023 CBC WITH WBC DIFFERENTIAL Lab Routine HTN, goal below 130/80 Ordered: 01/14/2023 LIPID PANEL WITH DIRECT LDL IF TG IS HIGH Lab Routine Encounter for long-term (current) use of medications Ordered: 01/14/2023 Scheduled Procedures Name Priority Associated Diagnoses Date/Ti me COLONOSCOPY FLEXIBLE PROXIMAL DIAGNOSTIC Recall Screen for colon cancer Health Maintenance Due Date Last Done Comments Pap Smear 1980 Cervical Cancer Screening 1989 HPV/Co-Test 1989 Cologuard 2004 Fecal Occult Blood Test 2004 Sigmoidoscopy 2004 Depression Screening 02/13/2022 01/14/2023 COVID-19 Vaccine ( season) 2022 08/29/2020 TSH 08/14/2023 08/13/2022, 1110/2021, 06/11/2021, Additional history exists Mammogram 10/03/2023 10/02/2022, 09/13, 08/06/2021 (Done elsewhere), Additional history exists GFR 01/02/2024 01/01/2023, 06/0 03/2022, 01/20/2022, Additional history exists Albumin/Creatinine Ratio 01/20/2025 022, 10/24/2020, 02/13/2020 Lipid Panel 01/20/2027 01/20/2022, 03/3 , 10/24/2020, Additional history exists DTaP,Tdap,and Td Vaccines [...] Not on filedocumented as of this encounter Visit Diagnoses Diagnosis HTN, goal below 130/80- Primary Unspecified essential hypertension Acquired hypothyroidism Unspecified hypothyroidism Encounter for long-term (current) use of medications Encounter for long-term (current) use of other medications Vaginal atrophy Postmenopausal atrophic vaginitis Onychomycosis Dermatophytosis of nail documented in this encounter Care Teams Account Executive [employer] Relationship Specialty Start Date End Date Clayton Monroe DO [address] [address] PCP - General Family Medicine 02/13/20 documented as of this encounter
--- OUTSIDE RECORDS SUMMARY | 2023-01-25 22:52 | External Medical Summary | Summary of Care ---
Author Name Unknown Organization [facility] Address [address] [place] [address] Phone [phone] Care Team Providers Care Box Repairer Name Role Phone Clayton Monroe Primary Care Provider Encounter Details Date Type Department Care Team Description 12/11/2022 Result Scan Unspecified Department <No scans attached> Allergies Active Allergy Reactions Severity Noted Date Comments Alcohol Rash 04/10/2019 Latex 02/13/2020 Tramadol 02/13/2020 documented as of this encounter (statuses as of 12/15/2022) Medications Medication Sig Dispensed Refills Start Date [...] as of this encounter (statuses as of 12/15/2022) Active Problems Problem Noted Date HTN, goal below 130/80 02/13/2020 Acquired hypothyroidism 02/13/2020 Encounter for long-term (current) use of medications 02/13/2020 Neoplasm of uncertain behavior of skin 1 04/15/2019 documented as of this encounter (statuses as of 12/15/2022) Immunizations Name Administration Dates Next Due Covid-19 Ad26, Single Dose (Mague/J&J) 021 Measles & Rubella Vaccine 05/22/2019 SEASONAL INFLUENZA, PF, 6 M & Above, IM , (FLULAVAL or FLUZONE) 12/18/2021,12/28/2020 TDAP (age 10 and older)(Boostrix) 11/23/2018 Zoster Vaccine Recombinant (Shingrix) 11/30/2019 ,09/25/2019 documented as of this encounter Social History Tobacco Use Types Packs/Day Years Used Date Smoking Tobacco: Never Smokeless Tobacco: Never Alcohol Use Standard Drinks/Week Comments Never 0 (1 standard drink = 0.6 oz pur e alcohol) Alcohol Habits Answer Date Recorded How often do you have a drink containing alcohol ? Never 02/13/2020 How many drinks containing a lcohol do you have on a typical day when you are drinking? Not asked How often do you have six or more drinks on one occasion? Not asked Food Insecurity Answer Date Recorded Within the past 12 months, y ou worried that your food would run out before you got money to buy more. Never true 02/16/2022 Within the past 12 months, t he food you bought just didn't last and you didn't have money to get more. Never true 02/16/2022 Sex Assigned at Date Recorded Female 02/15/2022 9:[address] Job Start Date Occupation Industry Not on file Not on file Not on file documented as of this encounter Plan of Treatment Upcoming Encounters Date Type Specialty Care Team Description 01/14/2023 Office Visit Family Medicine Clayton Monroe DO [address] [place] [address] Scheduled Procedures Name Priority Associated Diagnoses Date/Ti me COLONOSCOPY FLEXIBLE PROXIMAL DIAGNOSTIC Recall Screen for colon cancer Health Maintenance Due Date Last Done Comments Pap Smear 1980 Cervical Cancer Screening 1989 HPV/Co-Test 1989 Cologuard 2004 Fecal Occult Blood Test 2004 Sigmoidoscopy 2004 Depression Screening 02/13/2022 02/13/2021 COVID-19 Vaccine (2 - 2022- season) 2022 08/29/2020 Influenza Vaccine (FLU shot) (#1) 2022 12/18/2021, 12/28/2020, 12/17/2013 GFR 08/14/2023 08/13/2022, 110 10/2021, 06/11/2021, Additional history exists TSH 08/14/2023 08/13/2022, 110 10/2021, 06/11/2021, Additional history exists Mammogram 10/03/2023 10/02/2022, 07/14 (Done elsewhere) Albumin/Creatinine Ratio 01/20/2025 022, 10/24/2020, 02/13/2020 Lipid Panel 01/20/2027 01/20/2022, 05/15, 10/24/2020, Additional history exists DTaP,Tdap,and Td Vaccines (2 - Td or Tdap) 11/23/2028 11/23/2018 Colonoscopy 04/17/2029 04/17/2019, 04/17/2019 Colorectal Cancer Screening 04/17/2029 Zoster Vaccines Completed 11/30/2019, 09/25/2019 GARDASIL-HPV IMMUNIZATION SERIES Aged Out No longer [...] Procedure Name Priority Date/Time Associated Diagnosis Comments RADIOLOGY SCANNED RESULT 12/11/2022 documented in this encounter Results * RADIOLOGY SCANNED RESULT (12/11/2022) 12/11/2022 No Physician Data Unknown [facility] RAD [facility]OLOGY SERVICES documented in this encounter Care Teams Box Repairer Relationship Specialty Start Date End Date Clayton Monroe DO [address] [place] [address] PCP - General Family Medicine 02/13/20 documented as of this encounter
--- OUTSIDE RECORDS SUMMARY | 2023-01-25 22:52 | External Medical Summary | Summary of Care ---
Author Name Unknown Organization [facility] Address [address] [place] [address] Phone [phone] Care Team Providers Care Blueprinting And Photocopy Supervisor Name Role Phone MonroeClaytonmónica Primary Care Provider Encounter Details Date Type Department Care Team Description 01/02/2023 Immunization Ancillary [facility] [address] [facility] [place] [address] [facility] [address] [facility] [place] [address] Arrived Allergies Active Allergy Reactions Severity Noted Date Comments Alcohol Rash 04/10/2019 Latex 02/13/2020 Tramadol 02/13/2020 documented as of this encounter (statuses as of 01/02/2023) Medications Medication Sig Dispensed Refills Start Date [...] as of this encounter (statuses as of 01/02/2023) Active Problems Problem Noted Date HTN, goal below 130/80 02/13/2020 Acquired hypothyroidism 02/13/2020 Encounter for long-term (current) use of medications 02/13/2020 Neoplasm of uncertain behavior of skin 1 04/15/2019 documented as of this encounter (statuses as of 01/02/2023) Immunizations Name Administration Dates Next Due Covid-19 [...] Monroe DO [address] [place] [address] Scheduled Procedures Name Priority Associated Diagnoses Date/Ti me COLONOSCOPY FLEXIBLE PROXIMAL DIAGNOSTIC Recall Screen for colon cancer Health Maintenance Due Date Last Done Comments Pap Smear 1980 Cervical Cancer Screening 1989 HPV/Co-Test 1989 Cologuard 2004 Fecal Occult Blood Test 2004 Sigmoidoscopy 2004 Depression Screening 02/13/2022 02/13/2021 COVID-19 Vaccine ( - season) 2022 08/29/2020 Influenza Vaccine (FLU shot) (#1) 2022 01/02/2023, 12/18/2021, 12/28/2020, Additional history exists GFR 08/14/2023 08/13/2022, 11/0 10/2021, 06/11/2021, Additional history exists TSH 08/14/2023 [...] Not on filedocumented as of this encounter Care Teams Blueprinting And Photocopy Supervisor Relationship Specialty Start Date End Date Clayton Monroe DO [address] [place] [address] PCP - General Family Medicine 02/13/20 documented as of this encounter
--- OUTSIDE RECORDS SUMMARY | 2023-01-25 22:52 | External Medical Summary | Continuity of Care Document ---
Author Name Unknown Organization [facility] [address] [facility] [address] [id number] Care Team Providers Care Head Waiter/Waitress Name Role Phone Clayton Monroe Primary Care Physician [phone] Encounter [facility] FINNBR [id number] Date(s): 10/15/22 - 10/15/22 [facility] [address] [phone] Encounter Diagnosis SK (seborrheic keratosis)(Discharge Diagnosis) - 10/15/22 Discharge Disposition: Home or Self Care Attending Physician: MD Lui David L Referring Physician: MD Lui David L Allergies, Adverse Reactions, Alerts Substance Reaction Severity Status Ultracet dizziness Active Latex skin irritation Active Assessment and Plan Extracted from: Title:Clinical Document Author:MD Lui David L Date:10/15/22 OUTPATIENT NOTE Name: HELENA IRAHETA Patient Number:[id number] : 1960 Date of Service: 10/15/2022 _ Ms Iraheta is in for recheck. She was irritated lesion on the right dorsal hand. The warts have resolved. She no prior history of skin cancer. She does use sun protection. Physical examination: Well-developed well-nourished white female with type II skin. Alert and oriented x3. Examination of the face ears neck back chest hands arms legs and feet reveal chamberlain verrucal hyperkeratotic papules in the trunk. She has a 3 mm erythematous verruca hyperkeratotic inflamed papule in the right dorsal hand. Impression: #1 seborrheic keratosis and trunk. #2 irritated seborrheic keratosis right dorsal hand. #3 no evidence for atypical nevi or skin cancer. Plan: After discussing the procedure risk benefits and scarring, she gives verbal consent for cryotherapy. Cryotherapy applied to the lesion on the right dorsal hand. She tolerated very well. Wound care instruction given. Sun protection was stressed. She will return for recheck in 1 year. Medications Caltrate 600 + D Start: 07/22/18 8:15:00 EDT, 1 tab, PO, Daily Start Date: 07/22/18 Status: Ordered echinacea Start: 01/13/17 7:53:00, 400 mg =, Daily Start Date: 01/13/17 Status: Ordered EPA Fish Oil Start: 10/11/20 14:17:00 EDT, 1 cap, PO, Daily Start Date: 10/11/20 Status: Ordered estradiol 0.1 mg/g vaginal cream Start: 10/11/20 14:18:00 EDT, 1 appl, vaginal, 2 x weekly Start Date: 10/11/20 Status: Ordered Synthroid 50 mcg (0.05 mg) oral tablet Start: 07/22/18 8:14:00 EDT, 1 tab, PO, Daily Start Date: 07/22/18 Status: Ordered tumeric Start: 01/13/17 7:54:00, tumeric, 500 = mg, Daily Start Date: 01/13/17 Status: Ordered Mental Status 10/15/22 Barriers to Learning one year None evide nt Mandatory Health Literacy Documentation Yes Health Literacy Communication Barriers N ever Primary Language [place] Problem List Condition Confirmation Course Effective Dates Status Health St atus Informant Acute URI Confirmed Active Arthritis Confirmed Active Compound nevus Confirmed Active Pressure sensation in left ear Confirmed Active Left ear pain Confirmed Active Skin lesion Confirmed Active Diagnosis Diagnosis Type Effective Dates Health Status Cl inical Service Informant SK (seborrheic keratosis) Discharge Diagnosis 10/15/22 Procedures Procedure Date Related Diagnosis Body Site Status Hysterectomy 1 Completed Left hip 2 Completed Shave biopsy 3 Completed 1age 34 2replaced 3multiple Social History Social History Type Response Smoking Status Never smoked cigaret casey Sex Female Outpatient Note * MD Hu, Jean Marie Palma: PERFORM Event Display: .Outpt Note Authored Date: [id number] OUTPATIENT NOTE Name: HELENA IRAHETA Patient Number:[id number] : 1960 Date of Service: 10/15/2022 _ Ms Myrtle is in for recheck. She was irritated lesion on the right dorsal hand. The warts have resolved. She no prior history of skin cancer. She does use sun protection. Physical examination: Well-developed well-nourished white female with type II skin. Alert and oriented x3. Examination of the face ears neck back chest hands arms legs and feet reveal chamberlain verrucal hyperkeratotic papules in the trunk. She has a 3 mm erythematous verruca hyperkeratotic inflamed papule in the right dorsal hand. Impression: #1 seborrheic keratosis and trunk. #2 irritated seborrheic keratosis right dorsal hand.#3 no evidence for atypical nevi or skin cancer. Plan: After discussing the procedure risk benefits and scarring, she gives verbal consent for cryotherapy. Cryotherapy applied to the lesion on the right dorsal hand. She tolerated very well. Wound care instruction given. Sun protection was stressed. She will return for recheck in 1 year. Electronic Signature on File Electronically Reviewed/Signed by: Jean Marie Lui MD Author Signature Dt/Tm:10/15/2022 01:38 PM Department of Dermatology DLS Patient Care team information Care Team Personnel Name: DO Monroe Trevor S Position: Referring DIRECT Member Role: Primary Care Provider Address: Address: [facility] [address] [place] [address] Care Team Related Persons Name: GROVER IRAHETA Address: home [address] [facility] [address] [place], [place] [phone] Name: ONUR SUERO Address: home [address] [place], [place] [phone]
--- OUTSIDE RECORDS SUMMARY | 2023-01-25 22:52 | External Medical Summary | Summary of Care ---
Author Name Unknown Organization [facility] Address [address] [place] [address] Phone [phone] Care Team Providers Care Key Operator Name Role Phone Clayton Monroe Primary Care Provider Encounter Details Date Type Department Care Team Description 10/27/2022 Result Scan Unspecified Department <No scans attached> Allergies Active Allergy Reactions Severity Noted Date Comments Alcohol Rash 04/10/2019 Latex 02/13/2020 Tramadol 02/13/2020 documented as of this encounter (statuses as of 10/29/2022) Medications Medication Sig Dispensed Refills Start Date [...] as of this encounter (statuses as of 10/29/2022) Active Problems Problem Noted Date HTN, goal below 130/80 02/13/2020 Acquired hypothyroidism 02/13/2020 Encounter for long-term (current) use of medications 02/13/2020 Neoplasm of uncertain behavior of skin 1 04/15/2019 documented as of this encounter (statuses as of 10/29/2022) Immunizations Name Administration Dates Next Due Covid-19 Ad26, Single Dose (Mague/J&J) 021 Measles & Rubella Vaccine 05/22/2019 Seasonal Influenza, Quadriva lent, No Preserve, 6 Mons & Above, IM 12/18/2021,12/28/2020 TDAP (age 10 and older)(Boostrix) 11/23/2018 [...] Monroe DO [address] [place] [address] Scheduled Procedures Name Priority Associated Diagnoses Date/Ti me COLONOSCOPY FLEXIBLE PROXIMAL DIAGNOSTIC Recall Screen for colon cancer Health Maintenance Due Date Last Done Comments Pap Smear 1980 Cervical Cancer Screening 1989 HPV/Co-Test 1989 Cologuard 2004 Fecal Occult Blood Test 2004 Sigmoidoscopy 2004 COVID-19 Vaccine (2 - Booster for Mague series) 10/24/2020 08/29/2020 Depression Screening, Annual for Pts 12 and Over 02/13/2022 02/13/2021 Influenza Vaccine (FLU shot) (#1) 2022 12/18/2021, [...] Procedure Name Priority Date/Time Associated Diagnosis Comments EKG SCANNED RESULT 10/27/2022 documented in this encounter Results * EKG SCANNED RESULT (10/27/2022) 10/27/2022 No Physician Data Unknown EKG documented in this encounter Care Teams Key Operator Relationship Specialty Start Date End Date Clayton Monroe DO [address] [place] [address] PCP - General Family Medicine 02/13/20 documented as of this encounter
--- OUTSIDE RECORDS SUMMARY | 2023-01-25 22:52 | External Medical Summary | Summary of Care ---
Author Name Unknown Organization [facility] Address [address] [place] [address] Phone [phone] Care Team Providers Care Former Hand Name Role Phone Clayton Monroe DO Primary Care Provider Encounter Details Date Type Department Care Team Description 10/09/2022 Orders Only Family [facility] [address] [place] [address] Clayton Monroe DO [address] [place] [address] Allergies Active Allergy Reactions Severity Noted Date Comments Alcohol Rash 04/10/2019 Latex 02/13/2020 Tramadol 02/13/2020 documented as of this encounter (statuses as of 10/09/2022) Medications Medication Sig Dispensed Refills Start Date [...] as of this encounter (statuses as of 10/09/2022) Active Problems Problem Noted Date HTN, goal below 130/80 02/13/2020 Acquired hypothyroidism 02/13/2020 Encounter for long-term (current) use of medications 02/13/2020 Neoplasm of uncertain behavior of skin 1 04/15/2019 documented as of this encounter (statuses as of 10/09/2022) Immunizations Name Administration Dates Next Due Covid-19 [...] Description 01/14/2023 Office Visit Family Medicine Clayton Monroe, [address] [place] [address] Scheduled Procedures Name Priority Associated Diagnoses Date/Ti me COLONOSCOPY FLEXIBLE PROXIMAL DIAGNOSTIC Recall Screen for colon cancer Health Maintenance Due Date Last Done Comments Pap Smear 1980 Cervical Cancer Screening 1989 HPV/Co-Test 1989 Cologuard 2004 Fecal Occult Blood Test 2004 Sigmoidoscopy 2004 COVID-19 Vaccine (2 - Booster for Mague series) 10/24/2020 08/29/2020 Depression Screening, Annual for Pts 12 and Over 02/13/2022 02/13/2021 Mammogram 08/06/2022 10/02/2022, 07/14 (Done elsewhere) Influenza Vaccine (FLU shot) (#1) 2022 12/18/2021, 12/28/2020, 12/17/2013 GFR 08/14/2023 08/13/2022, 11/0 10/2021, 06/11/2021, Additional history exists TSH 08/14/2023 08/13/2022, 11/0 10/2021, 06/11/2021, Additional history exists Albumin/Creatinine Ratio 01/20/2025 022, [...] Procedure Name Priority Date/Time Associated Diagnosis Comments MAMMOGRAM SCREENING BILATERAL Routine 10/02/2022 documented in this encounter Results * MAMMOGRAM SCREENING BILATERAL (10/02/2022) Anatomical Region Laterality Modality Breast Bilateral Other 10/02/2022 Adi Monique DO RAD MAMMOGRAPHY documented in this encounter Care Teams Former Hand Relationship Specialty Start Date End Date Clayton Monroe DO [address] [place] [address] PCP - General Family Medicine 02/13/20 documented as of this encounter
== END 2023-01-23 12:43 | disposition home health service (06) ==
LOC: ASU 05:16 → 3W 05:16
DX: Z79.899 Other long term (current) drug therapy; Z88.5 Allergy status to narcotic agent; M16.11 Unilateral primary osteoarthritis, right hip; Z91.040 Latex allergy status; Z79.890 Hormone replacement therapy